=== PATIENT | female | born 1995 ===

== ENCOUNTER → 2018-09-28 | Outpatient (CLI) | payer BC, OTHER ==
[~2018-09-28] MED LIST: CODACE30 PO; CRUTCH4 USE; IBUP600 PO; RXHYDACE PO
== END ==
LOC: LAB 11:13 → LAB SHORT 11:13
DX: J32.8 Other chronic sinusitis (principal); L50.8 Other urticaria
CPT/HCPCS: 87070; 87077; 87186; 87205

== ENCOUNTER → 2019-06-06 | Outpatient (CLI) | payer BC, OTHER ==
[2019-06-09 11:06] LABS: CHLAMYDIA TRACHOMATIS, NAA Negative (Negative); NEISSERIA GONORRHOEAE, NAA Negative (Negative)
== END | disposition home or self-care (01) ==
LOC: LAB 09:46 → LAB SHORT 09:46
PROVIDERS: Nurse Practitioner Women's Health
DX: Z11.3 Encounter for screening for infections with a predominantly sexual mode of transmission (principal)
CPT/HCPCS: 87491; 87591